=== PATIENT | female | born 1985 | race Two or more races ===

== ENCOUNTER 2023-12-24 19:36 | Emergency (ER) | payer OTHER ==
[~2023-12-24] VITALS: Ht 167.6 cm; Wt 86.2 kg
[2023-12-24] MEDS ORDERED: CYMBALTA60 MG PO (19:41)
== END 2023-12-24 20:24 | disposition home or self-care (01) ==
LOC: ER 19:37
DX: M25.511 Pain in right shoulder (principal); Z88.8 Allergy status to other drugs, medicaments and biological substances

== ENCOUNTER 2023-12-28 17:37 | Emergency (ER) | payer OTHER ==
[~2023-12-28] VITALS: Ht 167.6 cm; Wt 88.9 kg
[~2023-12-28 17:37] MED LIST: CYMBALTA60 MG PO
[2023-12-28] MEDS ORDERED: DICLOFENAC SODI75 MG PO (22:15)
== END 2023-12-28 22:30 ==
LOC: ER 17:39
DX: M25.511 Pain in right shoulder (principal); Z88.6 Allergy status to analgesic agent; M79.7 Fibromyalgia

== ENCOUNTER 2025-01-02 17:24 | Emergency (ER) | payer OTHER ==
[~2025-01-02] VITALS: Ht 162.6 cm; Wt 73.5 kg
[~2025-01-02 17:24] MED LIST changes: +DICLOFENAC SODI75 MG PO
[2025-01-02] MEDS ORDERED: KETOROLAC TROMETHAMINE 60 MG VIAL IM ONE (22:45)
[2025-01-02] MEDS ORDERED: DEXAMETHASONE SODIUM PHOSPHATE 4 MG/ML VIAL IM ONE (22:45)
== END 2025-01-03 01:40 | disposition home or self-care (01) ==
LOC: ER 17:24
DX: M25.512 Pain in left shoulder (principal); Z88.8 Allergy status to other drugs, medicaments and biological substances